=== PATIENT | female | born 1980 | race Caucasian/White ===

== ENCOUNTER 2017-05-18 08:50 | Emergency (ER) | payer BC ==
[2017-05-18] MEDS ORDERED: Ondansetron ODT TAB* 4 MG PO ONE (09:01)
[2017-05-18 09:10] VITALS: BP 125/79
--- NOTE | 2017-05-18 10:07 | UC ---
Wolfgang Colbert Jennifer, scribed for Sherry Harrell MD on 05/18/17 at 0945 . General HPI - HPI Summary HPI Summary: The patient is a 36 year old female who presents with vomiting for two days. Began as nausea, progressed to vomiting. Without abd pain perse, but uncomfortable with vomiting. General achy, no point discomfort. + dydration, able to drink po water and tea, but foot not possible d/t vomit. No rash. No sob / cp / palpitations. Has Graves dz, followed closely with pcp, recent thyroid and medication check. No urine issues, no hematuria, dysuria, freq / urg. No brbpr. No melena. Last bm yesterday, normal. + periodic hot flashes, but not unusual s/p hysterectomy approx five years ago. - History of Current Complaint Chief Complaint: UCGeneralIllness Stated Complaint: VOMITING CHILLS Time Seen by Provider: 05/18/17 09:20 Hx Obtained From: Patient Hx Last Menstrual Period: hyster Onset/Duration: Sudden Onset, Lasting Days - two days, Still Present, Worse Since Timing: Constant Onset Severity: Mild Current Severity: Mild Pain Intensity: 2 Associated Signs & Symptoms: Positive: Other - nausea, vomiting, body aches. NEGATIVE: fevers, rash, diarrhea, black or red bowel movement, dysuria, change in frequency of urination, blood in urine, recent illness - Allergy/Home Medications Allergies/Adverse Reactions: Allergies Allergy/AdvReac Type Severity Reaction Status Date / Time nyquil pm Allergy anaph Uncoded 05/18/17 09:05 PMH/Surg Hx/FS Hx/Imm Hx Previously Healthy: Yes - NEG: HTN, DM - Surgical History Surgical History: Yes Surgery Procedure, Year, and Place: Thyroidectromy, tonsillectomy,hysterectomy - Family History Known Family History: Positive: Hypertension, Diabetes, Other - sjogren's Negative: Cardiac Disease - Social History Alcohol Use: Rare Substance Use Type: None Smoking Status (MU): Former Smoker - Quit two months ago Review of Systems Gastrointestinal: Vomiting, Nausea Musculoskeletal: Myalgia All Other Systems Reviewed And Are Negative: Yes Physical Exam - Summary Physical Exam Summary: Appearance: Well-Nourished Eye Exam: Normal ENT Exam: Normal Neck: Normal, No adenopathy appreciated Respiratory Exam: Normal, no dyspnea, no tachypnea, normal respiratory rate Chest non-tender, Lungs clear, Normal breath sounds, No respiratory distress, No accessory muscle use Cardiovascular Exam: Normal Cardiovascular: Heart rate regular, good general skin color, good capillary refill Abdominal Exam: Normal Abdomen Description: Nontender, No Organomegaly, Soft Bowel Sounds: Present Musculoskeletal Exam: Normal Musculoskeletal: Strength Intact Neurological Exam: Normal: nonfocal, grossly intact Psychological Exam: Normal: conversing easily and appropriately Skin Exam: Normal: no visible or reported rash Triage Information Reviewed: Yes Appearance: Well-Nourished - sitting up. Looks tired but NAD. Vital Signs: Initial Vital Signs Temp 97.6 F 05/18/17 09:07 Pulse 94 05/18/17 09:07 Resp 17 05/18/17 09:07 BP 125/79 05/18/17 09:07 Pulse Ox 99 05/18/17 09:07 Vital Signs Reviewed: Yes Eye Exam: Normal ENT Exam: Normal, Other - R TM mild posada ENT: Positive: Pharynx normal, Other - lips a little dry Neck exam: Normal Neck: Positive: Supple, Nontender, No Lymphadenopathy Respiratory Exam: Normal Respiratory: Positive: Chest non-tender, Lungs clear, Normal breath sounds, No respiratory distress, No accessory muscle use Cardiovascular Exam: Normal - HR 90's, she reports not unusual. Abdominal Exam: Other - soft, nt, nd. + BS slightly hyperactive. No cvat. No HSM appreciated. General discomfort but without point tenderess / r /g. Musculoskeletal Exam: Normal - gait steady, moves x 4 ext's Neurological Exam: Normal - grossly nonfocal Psychological Exam: Normal - comversing easily and appropriately Skin Exam: Normal Re-Evaluation - Re-Evaluation First Eval Re-Evaluation Time: 09:54 Change: Unchanged Comment: The patient declined IV. Course/Dx - Course Course Of Treatment: Reviewed with pt urine dip, including + elev SG. Influenza neg. Will check cmp, cbc, lipase. F/u PCP. Work note written. Questions as posed answered to the best of my ability. - Differential Dx - Multi-Symptom Provider Diagnoses: Acute n/v. Volume depletion Discharge - Discharge Plan Condition: Stable Disposition: HOME Prescriptions: Ondansetron ODT TAB* [Zofran 4 MG Odt TAB*] 4 mg PO Q8H PRN #16 tab.odt PRN Reason: Nausea Patient Education Materials: Dehydration (ED), Acute Nausea and Vomiting (ED) Forms: *Work Release Referrals: Celine Carlos MD [Primary Care Provider] - Additional Instructions: Please follow up with your primary care provider - call today to advise her of your condition. Follow up in the next couple weeks. Blood work today. Seek medical attention for worse or new problems in the meantime. The documentation as recorded by the Wolfgang oliva Jennifer accurately reflects the service I personally performed and the decisions made by me, Sherry Harrell MD.
[2017-05-18 12:27] LABS: ABS Basophils 0.1 10^3/ul (0-0.2); ABS Eosinophils 0.2 10^3/ul (0-0.6); ABS Lymphocytes 3.4 10^3/ul (1.0-4.8); ABS Monocytes 0.5 10^3/ul (0-0.8); ABS Neutrophils 3.6 10^3/ul (1.5-7.7); ABS Nucleated RBC 0 10^3/ul; Eosinophil % 3.1 % (0-6); Hematocrit 47 % (35-47); Hemoglobin 15.9 g/dl (12.0-16.0); Lymphocyte % 43.8 % (25-47); Mean Corpuscular HGB Conc 34 g/dl (31-36); Mean Corpuscular Hemoglobin 29 pg (27-31); Mean Corpuscular Volume 86 fL (80-97); Mean Platelet Volume 9 um3 (7.4-10.4); Nucleated Red Blood Cells % 0.1; Platelet Count 268 10^3/ul (150-450); Red Blood Count 5.43 10^6/ul (4.0-5.4); Red Cell Distribution Width 13 % (10.5-15); White Blood Count 7.8 10^3/ul (3.5-10.8)
[2017-05-18 12:39] LABS: EGFR Non-African American 76.9 (>60)
--- NOTE | 2017-05-19 07:25 | UC ---
- Progress Note Progress Note: CBC, CMP reviewed no change in management Dontae 05/19/17 Re-Evaluation - Re-Evaluation First Eval Re-Evaluation Time: 09:54 Change: Unchanged Comment: The patient declined IV.
== END 2017-05-18 10:09 | disposition home or self-care (01) ==
LOC: UCEAST 08:50
DX: R11.2 Nausea with vomiting, unspecified (principal); E86.9 Volume depletion, unspecified; M79.1 Myalgia; E05.00 Thyrotoxicosis with diffuse goiter without thyrotoxic crisis or storm; Z87.891 Personal history of nicotine dependence
CPT/HCPCS: 36415; 80053; 81003; 83690; 85025; 87502; 99212; A9270-GY; G0463